=== PATIENT | female | born 1980 ===

== ENCOUNTER 2019-12-10 06:16 | Day surgery (SDC) | payer OTHER | END 2019-12-10 09:57 | disposition home or self-care (01) | LOC: AMB-ENDOS 06:16 → ADM 13:00 → AMB-ENDOS 13:00 | PROVIDERS: ATTEND Surgery | DX: K29.50 Unspecified chronic gastritis without bleeding (principal); K44.9 Diaphragmatic hernia without obstruction or gangrene ==